=== PATIENT | female | born 1990 | race Caucasian/White ===

== ENCOUNTER 2022-09-25 19:27 | Outpatient (REF) | payer BC, SELFPAY ==
[2022-09-27 10:56] LABS: Varicella IgG Antibody Positive (See Note)
== END 2022-09-25 19:28 | disposition home or self-care (01) ==
LOC: LBN 19:27
PROVIDERS: Visit Provider Family Medicine
DX: Z02.1 Encounter for pre-employment examination (principal); Z11.59 Encounter for screening for other viral diseases
CPT/HCPCS: 86787